=== PATIENT | female | born 1990 | race African-American/Black ===

== ENCOUNTER 2017-06-22 17:12 | Emergency (ER) | payer OTHER ==
[~2017-06-22] VITALS: Ht 177.8 cm; Wt 82.0 kg
[2017-06-22] MEDS ORDERED: CLONAZEPAM1 MG PO (20:32)
[2017-06-22] MEDS ORDERED: CLONIDINE HCL0.1 MG PO (20:32)
[2017-06-22] MEDS ORDERED: VENTOLIN HFA18 GM IH (20:32)
[2017-06-22] MEDS ORDERED: BENZTROPINE ME0.5 MG PO (20:32)
[2017-06-22 21:12] VITALS: BP 122/88
== END 2017-06-22 21:12 | disposition home or self-care (01) ==
LOC: EME 17:12
PROVIDERS: Physician Assistant
DX: J20.9 Acute bronchitis, unspecified (principal); Z76.0 Encounter for issue of repeat prescription; F32.9 Major depressive disorder, single episode, unspecified
CPT/HCPCS: 82948; 94640; 99281; 99284

== ENCOUNTER 2017-08-05 16:58 | Emergency (ER) | payer OTHER ==
[~2017-08-05] VITALS: Ht 175.3 cm; Wt 81.8 kg
[~2017-08-05 16:58] MED LIST: BENZTROPINE ME0.5 MG PO; CIPRODEX OTIC7.5 ML RIGHT EAR; CLONAZEPAM1 MG PO; CLONIDINE HCL0.1 MG PO; VENTOLIN HFA18 GM IH
[2017-08-05 19:35] VITALS: BP 129/85
== END 2017-08-05 19:36 | disposition home or self-care (01) ==
LOC: EME 16:58
DX: S92.425A Nondisplaced fracture of distal phalanx of left great toe, initial encounter for closed fracture (principal); S90.112A Contusion of left great toe without damage to nail, initial encounter; W20.8XXA Other cause of strike by thrown, projected or falling object, initial encounter; Y99.0 Civilian activity done for income or pay; F31.9 Bipolar disorder, unspecified
CPT/HCPCS: 73630; 99281; 99284

== ENCOUNTER 2017-08-09 19:06 | Emergency (ER) | payer OTHER ==
[~2017-08-09] VITALS: Ht 175.3 cm; Wt 81.4 kg
[2017-08-09 19:50] LABS: BASOPHIL (%) 0.6 % (0-1); BASOPHIL COUNT 0.1 K/uL (0-0.1); EOSINOPHIL (%) 6.5 % (0-5); EOSINOPHIL COUNT 0.7 K/uL (0-0.3); HEMATOCRIT 36.7 % (36.0-46.0); HEMOGLOBIN 12.5 G/DL (11.9-15.5); IMMATURE GRANULOCYTE (%) 0.3 % (0.0-0.7); LYMPHOCYTE (%) 23.5 % (15-42); LYMPHOCYTE COUNT 2.4 K/uL (1.0-2.8); MCH 30.3 PG (29.0-34.0); MCHC 34.1 G/DL (30.0-36.0); MCV 89.1 FL (83-99); MONOCYTE (%) 6.3 % (3-12); MONOCYTE COUNT 0.6 K/uL (0-0.8); NEUTROPHIL (%) 62.8 % (45-76); NEUTROPHIL COUNT 6.3 K/uL (1.8-6.4); PLATELET COUNT 244 K/uL (156-360); RBC DIS.WIDTH-CV 13.2 % (11.8-14.6); RBC DIS.WIDTH-SD 43.6 % (39-53); RED BLOOD COUNT 4.12 M/uL (3.80-5.20); WHITE BLOOD COUNT 10.1 K/uL (4.1-10.2)
[2017-08-09 20:02] LABS: ALBUMIN 4.1 g/dL (3.2-4.8); CHLORIDE 107 mEq/L (99-109); POTASSIUM 3.6 mEq/L (3.7-5.4); SODIUM 138 mEq/L (136-147)
[2017-08-09 20:05] LABS: GLUCOSE 99 mg/dL (70-99)
[2017-08-09 20:07] LABS: TOTAL BILIRUBIN 0.2 mg/dL (0.0-1.0)
[2017-08-09 20:08] LABS: ALKALINE PHOSPHATASE 64 IU/L (3-129); CREATININE 0.7 mg/dL (0.6-1.3); GFR ESTIMATE (CALCULATED) > 59 mL/min/
[2017-08-09 20:10] LABS: AST (GOT) 16 IU/L (2-34); DIRECT BILIRUBIN 0.1 mg/dL (0.0-0.3); UREA NITROGEN (BUN) 14 mg/dL (9-23)
[2017-08-09 20:11] LABS: ALT (GPT) 11 IU/L (3-49)
[2017-08-09 20:18] LABS: QUANTITATIVE HCG < 4.0 MIU/ML
[2017-08-09 23:19] LABS: APPEARANCE CLEAR ((CLEAR)); BILIRUBIN NEGATIVE; BLOOD NEGATIVE; COLOR YELLOW ((YELLOW)); GLUCOSE (STRIP) NEGATIVE; KETONES NEGATIVE; LEUKOCYTES NEGATIVE; NITRITE NEGATIVE; PROTEIN (STRIP) NEGATIVE; UCUL ADDED? NO; UROBILINOGEN 0.2 MG/DL (0.2-1.0)
[2017-08-09 23:24] LABS: SPECIFIC GRAVITY > 1.060 (1.000-1.030)
[2017-08-09] MEDS ORDERED: MOTRIN800 MG PO (23:59)
[2017-08-10 00:15] VITALS: BP 98/58
== END 2017-08-10 00:15 | disposition home or self-care (01) ==
LOC: EME 19:06
PROVIDERS: Emergency Medicine
DX: R10.31 Right lower quadrant pain (principal); N83.201 Unspecified ovarian cyst, right side; K57.30 Diverticulosis of large intestine without perforation or abscess without bleeding; F31.9 Bipolar disorder, unspecified
CPT/HCPCS: 74177; 76856; 80048; 80076; 81003; 84702; 85025; 99281; 99285; J1885; J2270; J3010; J7030

== ENCOUNTER 2017-11-10 23:00 | Emergency (ER) | payer OTHER ==
[~2017-11-10] VITALS: Ht 172.7 cm; Wt 83.5 kg
[~2017-11-10 23:00] MED LIST changes: +MOTRIN800 MG PO
[2017-11-11 00:10] LABS: APPEARANCE SL.HAZY ((CLEAR)); BILIRUBIN NEGATIVE; BLOOD MODERATE; COLOR AMBER ((YELLOW)); GLUCOSE (STRIP) NEGATIVE; KETONES 5; LEUKOCYTES TRACE; NITRITE NEGATIVE; PROTEIN (STRIP) 30; SPECIFIC GRAVITY 1.034 (1.000-1.030)
[2017-11-11 00:20] LABS: AMPHETAMINE NEGATIVE (500 ng/mL); BARBITURATES NEGATIVE (200 ng/mL); BENZODIAZEPINES NEGATIVE (150 ng/mL); BUPRENORPHINE NEGATIVE (10 ng/mL); COCAINE NEGATIVE (150 ng/mL); METHADONE NEGATIVE (200 ng/mL); METHAMPHETAMINE NEGATIVE (500 ng/mL); OPIATES (MORPHINE) NEGATIVE (100 ng/mL); OXYCODONE NEGATIVE (100 ng/mL); PHENCYCLIDINE NEGATIVE (25 ng/mL); PROPOXYPHENE NEGATIVE (300 ng/mL); THC CANNABINOIDS NEGATIVE (50 ng/mL); TRICYCLIC ANTIDEPRESSANTS NEGATIVE (300 ng/mL)
[2017-11-11 00:42] LABS: RED BLOOD CELLS 0-5 /HPF (0-5); WHITE BLOOD CELLS 0-5 /HPF (0-5)
[2017-11-11 00:43] LABS: BACTERIA RARE /HPF; CALCIUM OXALATE CRYSTALS 3+ /HPF; EPITHELIAL CELLS 2+ /HPF; MUCUS 3+ /LPF; UCUL ADDED? NO
[2017-11-11 01:42] LABS: HEMATOCRIT 34.3 % (36.0-46.0); HEMOGLOBIN 11.9 G/DL (11.9-15.5); MCH 30.5 PG (29.0-34.0); MCHC 34.7 G/DL (30.0-36.0); MCV 87.9 FL (83-99); PLATELET COUNT 243 K/uL (156-360); RBC DIS.WIDTH-CV 12.7 % (11.8-14.6); RBC DIS.WIDTH-SD 40.7 % (39-53); WHITE BLOOD COUNT 11.4 K/uL (4.1-10.2)
[2017-11-11 01:58] LABS: CHLORIDE 107 mEq/L (99-109); POTASSIUM 3.5 mEq/L (3.7-5.4); SODIUM 139 mEq/L (136-147)
[2017-11-11 01:59] LABS: GLUCOSE 102 mg/dL (70-99)
[2017-11-11 02:03] LABS: CREATININE 0.7 mg/dL (0.6-1.3); GFR ESTIMATE (CALCULATED) > 59 mL/min/; SERUM ETHYL ALCOHOL < 10 mg/dL
[2017-11-11 02:04] LABS: UREA NITROGEN (BUN) 13 mg/dL (9-23)
[2017-11-11] MEDS ORDERED: MELATONIN5 M4 PO (03:54)
[2017-11-11 04:06] VITALS: BP 124/85
== END 2017-11-11 04:09 | disposition home or self-care (01) ==
LOC: EME 23:00
PROVIDERS: Emergency Medicine
DX: F41.9 Anxiety disorder, unspecified (principal); F33.9 Major depressive disorder, recurrent, unspecified; R31.9 Hematuria, unspecified; F31.9 Bipolar disorder, unspecified
CPT/HCPCS: 80048; 81003; 81025; 85027; 90839; 93005; 99281; 99283; G0480